=== PATIENT | female | born 1995 | race Caucasian/White ===

== ENCOUNTER 2021-03-19 12:23 | Emergency (ER) | payer OTHER ==
[2021-03-19 13:16] LABS: Bilirubin Negative (Negative); Blood, Urine Negative (Negative); Clarity Clear (Clear); Glucose, Urine (Dipstick) Negative (Negative); Ketone, Urine Negative (Negative); Leukocyte Negative (Negative); Nitrite Negative (Negative); Protein, Urine (Dipstick) Negative (Neg-Trace); Urobilinogen 0.2 mg/dL (Less than 2); pH, Urine 5.5 (5.0-9.0)
[2021-03-19 13:22] LABS: Specific Gravity, Urine 1.003 (1.002-1.036)
[2021-03-22 05:37] LABS: Chlam.trachomatis by PCR,Urine Not Detected (NotDetected)
== END 2021-03-19 13:37 | disposition home or self-care (01) ==
LOC: MADERS 12:23
DX: N39.0 Urinary tract infection, site not specified (principal); Z79.899 Other long term (current) drug therapy
CPT/HCPCS: 81003; 87086; 87491; 87591; 99283